=== PATIENT | male | born 1950 | race Caucasian/White ===

== ENCOUNTER 2020-12-22 11:46 | Inpatient (IN) | payer MEDICARE, MEDICAID ==
[~2020-12-22] VITALS: Ht 177.8 cm; Wt 74.4 kg
[2020-12-22] MEDS ORDERED: SODIUM CHLORIDE 0.9% 250 ML IV ONE (12:30)
[2020-12-22 12:36] LABS: HEMATOCRIT. 35.7 % (42.0-52.0); MEAN CORPUSCULAR HEMOGLOBIN 36.3 pg (28.0-32.0); MEAN CORPUSCULAR VOLUME 108.3 fL (80.0-94.0); MEAN PLATELET VOLUME 7.1 fl (7.4-10.4); PLATELET 70 x1000/uL (130-400)
[2020-12-22] MEDS ORDERED: ACETAMINOPHEN 325MG TABLET PO STA (12:41)
[2020-12-22 12:42] LABS: CHLORIDE 96 mEq/L (98-107)
[2020-12-22 12:44] LABS: INR 1.7; PROTHROMBIN TIME 17.7 sec (9.6-11.0)
[2020-12-22] MEDS ORDERED: PIPERACILLIN/TAZ 3.375G PREMIX 50 ML IV ONE (12:45)
[2020-12-22] MEDS ORDERED: VANCOMYCIN 1 G PREMIX 200 ML IV ONE (12:45)
[2020-12-22 12:46] LABS: ETHANOL BLOOD < 10 mg/dL
[2020-12-22] MEDS ORDERED: ACETAMINOPHEN 650MG SUPP PR ONE (13:00)
[2020-12-22 13:17] LABS: PLATELET ESTIMATE DECREASED
[2020-12-22] MEDS ORDERED: LACTULOSE 20G/30ML UDC PO ONE (13:30)
[2020-12-22] MEDS ORDERED: IOHEXOL-350 100 ML BOTTLE ONE (14:16)
[2020-12-22] MEDS ORDERED: SODIUM CHLORIDE 0.9% 1,000 ML IV ONE (14:45)
[2020-12-22] MEDS: DEXT 5%/0.9% NACL 1,000 ML IV SCH (16:45)
[2020-12-22] MEDS ORDERED: DILTIAZEM HCL 125 MG in DEXT 5% WATER 100 ML IV PRN (16:45)
[2020-12-22] MEDS ORDERED: ACETAMINOPHEN 650MG SUPP PR PRN (16:45)
[2020-12-22] MEDS ORDERED: MORPHINE SULFATE 2 MG/ML CPJ (NOT FOR IM USE) IV PRN (16:45)
[2020-12-22] MEDS ORDERED: ONDANSETRON HCL 4MG/2ML INJ IV PRN (16:45)
[2020-12-22] MEDS ORDERED: LACTULOSE 20G/30ML UDC PO SCH (16:45)
[2020-12-22] MEDS ORDERED: LORAZEPAM 2MG/ML CPJ IV PRN (16:45)
[2020-12-22] MEDS ORDERED: IPRATROPIUM/ALBUTEROL 0.5-3(2.5)MG/3ML NEB NEB PRN (16:45)
[2020-12-22] MEDS ORDERED: ACETAMINOPHEN 650MG/20.3ML UDC GT PRN (16:45)
[2020-12-22] MEDS ORDERED: PHENYLEPHRINE 50 MG in DEXT 5% WATER 245 ML IV PRN (16:45)
[2020-12-22] MEDS ORDERED: DIPHENHYDRAMINE 50MG/ML VIAL IV PRN (16:45)
[2020-12-22] MEDS ORDERED: PANTOPRAZOLE SODIUM 40 MG/VIAL IV SCH (17:00)
[2020-12-22 17:11] LABS: BG BASE EXCESS -13.1 mmol/L (-2.0-2.0); BG CARBOXYHEMOGLOBIN 0.5 % (0.5-1.5); BG DEOXYHEMOGLOBIN 5.3 % (0.0-5.0); BG HCO3 ACT 10.3 mmol/L (22.0-26.0); BG METHEMOGLOBIN 0.3 % (0.0-1.5); BG OXYGEN SATURATION 94.7 % (92.0-98.5); BG OXYHEMOGLOBIN 93.9 % (94.0-97.0); BG PCO2 19.4 mmHg (35.0-45.0); BG PH 7.344 (7.350-7.450); BG PO2 78.5 mmHg (75.0-100.0); BG SAMPLE SITE LEFT BRACHIAL; BG TOTAL HEMOGLOBIN 12.7 g/dL (12.0-18.0); BG VENT MODE ROOM AIR
[2020-12-22] MEDS ORDERED: PHYTONADIONE 10MG/ML AMP SUBCUT NR (17:30)
[2020-12-22] MEDS ORDERED: SODIUM BICARBONATE 8.4% 1 MEQ/ML 50ML SYR IV NR (17:30)
[2020-12-22] MEDS: LACTULOSE 20G/30ML UDC PO SCH (17:45)
[2020-12-22] MEDS: PANTOPRAZOLE SODIUM 40 MG/VIAL IV SCH (17:45)
[2020-12-22] MEDS: DEXTROSE 50% WATER 50ML SYRINGE IV PRN (17:52)
[2020-12-22] MEDS ORDERED: MEROPENEM 1,000 MG in SODIUM CHLORIDE 0.9% 100 ML IV SCH (18:00)
[2020-12-22] MEDS: MEROPENEM 1,000 MG in SODIUM CHLORIDE 0.9% 100 ML IV SCH (18:45)
[2020-12-22] MEDS: DILTIAZEM HCL 125 MG in DEXT 5% WATER 100 ML IV PRN (18:54)
[2020-12-23] VITALS (87 sets, daily range): BP systolic 68–137; BP diastolic 20–90
[2020-12-23] MEDS: NOREPINEPHRINE 8MG/250ML PMX 250 ML IV PRN ×2 (00:21→04:37)
[2020-12-23 00:32] LABS: HEMATOCRIT 32.2 % (42.0-52.0); HEMOGLOBIN 10.6 g/dL (14.0-18.0)
[2020-12-23] MEDS: LACTULOSE 20G/30ML UDC PO SCH ×4 (00:48→16:53)
[2020-12-23] MEDS ORDERED: VANCOMYCIN 1 G PREMIX 200 ML IV SCH ×2 (01:00→13:00)
[2020-12-23] MEDS: DILTIAZEM HCL 125 MG in DEXT 5% WATER 100 ML IV PRN (03:37)
[2020-12-23] MEDS: MEROPENEM 1,000 MG in SODIUM CHLORIDE 0.9% 100 ML IV SCH ×4 (04:03→22:40)
[2020-12-23] MEDS: BLOOD SUGAR DIAGNOSTIC STRIP TEST SCH ×7 (04:45→22:07)
[2020-12-23 05:54] LABS: HEMATOCRIT. 32.1 % (42.0-52.0); HEMOGLOBIN. 10.6 g/dL (14.0-18.0); MEAN CORPUSCULAR HEMOGLOBIN 35.4 pg (28.0-32.0); MEAN CORPUSCULAR VOLUME 107.3 fL (80.0-94.0); RED BLOOD CELL COUNT 2.99 mill/uL (4.7-6.1)
[2020-12-23 06:01] LABS: CHLORIDE 99 mEq/L (98-107)
[2020-12-23 06:07] LABS: TOTAL IRON BINDING CAPACITY 108 ug/dL (250-450)
[2020-12-23 06:09] LABS: CREATINE KINASE 652 IU/L (39-308)
[2020-12-23 06:37] LABS: HEPATITIS B SURFACE ANTIGEN NEGATIVE
[2020-12-23 06:43] LABS: VITAMIN B12 SERUM > 2000.0 pg/mL (211-911)
[2020-12-23 07:38] LABS: FERRITIN 1900 ng/mL (22-322)
[2020-12-23] MEDS: PHENYLEPHRINE 50 MG in DEXT 5% WATER 245 ML IV PRN ×3 (09:00→22:09)
[2020-12-23] MEDS ORDERED: PHYTONADIONE 10MG/ML AMP SUBCUT SCH (09:00)
[2020-12-23] MEDS ORDERED: FUROSEMIDE 40MG/4ML VIAL IVP SCH (09:00)
[2020-12-23] MEDS: PANTOPRAZOLE SODIUM 40 MG/VIAL IV SCH ×2 (10:32→17:22)
[2020-12-23] MEDS: DEXT 5%/0.9% NACL 1,000 ML IV SCH (10:35)
[2020-12-23 10:39] LABS: PLATELET 77 x1000/uL (130-400)
[2020-12-23 10:43] LABS: PLATELET ESTIMATE DECREASED
[2020-12-23 10:46] LABS: BG BASE EXCESS -18.8 mmol/L (-2.0-2.0); BG CARBOXYHEMOGLOBIN 0.4 % (0.5-1.5); BG DEOXYHEMOGLOBIN 2.3 % (0.0-5.0); BG FRACTION INSPIRED OXYGEN 32; BG HCO3 ACT 5.6 mmol/L (22.0-26.0); BG METHEMOGLOBIN 0.1 % (0.0-1.5); BG OXYGEN SATURATION 97.7 % (92.0-98.5); BG OXYHEMOGLOBIN 97.2 % (94.0-97.0); BG PCO2 12.7 mmHg (35.0-45.0); BG PH 7.262 (7.350-7.450); BG SAMPLE SITE LEFT RADIAL; BG TOTAL HEMOGLOBIN 11.9 g/dL (12.0-18.0); BG VENT MODE NASAL CANNULA
[2020-12-23] MEDS ORDERED: LACTULOSE 20G/30ML UDC PR NR (11:00)
[2020-12-23 11:54] LABS: HEMATOCRIT 33.6 % (42.0-52.0); HEMOGLOBIN 10.8 g/dL (14.0-18.0)
[2020-12-23 12:01] LABS: INR 2.4; PROTHROMBIN TIME 24.4 sec (9.6-11.0)
[2020-12-23] MEDS: VANCOMYCIN 750 MG PREMIX 150 ML IV SCH (12:01)
[2020-12-23 12:09] LABS: CLARITY URINE CLOUDY (CLEAR); COLOR URINE DARK YELLOW (YELLOW); KETONES URINE TRACE (NEGATIVE); LEUKOCYTE ESTERASE URINE TRACE (NEGATIVE); NITRITE URINE POSITIVE (NEGATIVE); OCCULT BLOOD URINE 1+ (NEGATIVE); PH URINE 5.5 (4.5-8.0); PROTEIN URINE 1+ (NEGATIVE)
[2020-12-23 12:42] LABS: OPIATES URINE SCREEN NEGATIVE (NEGATIVE)
[2020-12-23 12:43] LABS: *AMPHETAMINES SCREEN URINE NEGATIVE (NEGATIVE); *BARBITURATES SCREEN URINE NEGATIVE (NEGATIVE); *BENZODIAZEPINES SCREEN URINE NEGATIVE (NEGATIVE); *COCAINE SCREEN URINE NEGATIVE (NEGATIVE); CANNABINOID URINE SCREEN NEGATIVE (NEGATIVE); METHADONE URINE SCREEN NEGATIVE (NEGATIVE); PHENCYCLIDINE URINE SCREEN NEGATIVE (NEGATIVE)
[2020-12-23] MEDS: DEXTROSE 50% WATER 50ML SYRINGE IV PRN ×2 (13:08→18:05)
[2020-12-23] MEDS ORDERED: LACTULOSE 300 ML in WATER FOR IRRIGATION,STERILE 700 ML IR SCH (14:00)
[2020-12-23] MEDS: DEXTROSE 10% WATER 500 ML IV SCH (14:20)
[2020-12-23] MEDS ORDERED: SODIUM BICARBONATE 8.4% 1 MEQ/ML 50ML SYR IV NR (14:30)
[2020-12-23 15:35] LABS: PHOSPHORUS 5.5 mg/dL (2.5-4.9)
[2020-12-23] MEDS ORDERED: LACTULOSE 300 ML in WATER FOR IRRIGATION,STERILE 700 ML IR ONE (15:45)
[2020-12-23 15:50] LABS: FOLIC ACID (FOLATE) SERUM 5.2 ng/mL (>5.38)
[2020-12-23] MEDS ORDERED: MAGNESIUM 1 G PREMIX 100 ML IV NR (16:00)
[2020-12-23 17:40] LABS: BG BASE EXCESS -17.9 mmol/L (-2.0-2.0); BG CARBOXYHEMOGLOBIN 0.3 % (0.5-1.5); BG DEOXYHEMOGLOBIN 1.8 % (0.0-5.0); BG FRACTION INSPIRED OXYGEN 44; BG HCO3 ACT 6.9 mmol/L (22.0-26.0); BG METHEMOGLOBIN 0.2 % (0.0-1.5); BG OXYGEN SATURATION 98.2 % (92.0-98.5); BG OXYHEMOGLOBIN 97.7 % (94.0-97.0); BG PCO2 15.9 mmHg (35.0-45.0); BG PH 7.258 (7.350-7.450); BG PO2 129.3 mmHg (75.0-100.0); BG SAMPLE SITE RIGHT RADIAL; BG TOTAL HEMOGLOBIN 10.8 g/dL (12.0-18.0); BG VENT MODE NASAL CANNULA
[2020-12-23] MEDS: NOREPINEPHRINE 8 MG in DEXTROSE 5% WATER 250 ML IV PRN ×2 (18:33→22:08)
[2020-12-23 18:38] LABS: HEMATOCRIT 31.1 % (42.0-52.0); HEMOGLOBIN 10.1 g/dL (14.0-18.0)
[2020-12-23] MEDS ORDERED: PHYTONADIONE 10MG/ML AMP SUBCUT NR (20:00)
[2020-12-23] MEDS ORDERED: RIFAXIMIN 550 MG TABLET PO SCH (21:00)
[2020-12-24] VITALS (20 sets, daily range): BP systolic 0–107; BP diastolic 23–52
[2020-12-24] MEDS ORDERED: VASOPRESSIN 20 UNIT in SODIUM CHLORIDE 0.9% 99 ML IV PRN
[2020-12-24] MEDS: LACTULOSE 20G/30ML UDC PO SCH
[2020-12-24] MEDS: NOREPINEPHRINE 8 MG in DEXTROSE 5% WATER 250 ML IV PRN ×2 (00:24→02:00)
[2020-12-24] MEDS: BLOOD SUGAR DIAGNOSTIC STRIP TEST SCH ×2 (00:24→02:17)
[2020-12-24] MEDS: DEXTROSE 10% WATER 500 ML IV SCH (00:55)
[2020-12-24] MEDS: VANCOMYCIN 750 MG PREMIX 150 ML IV SCH (00:55)
[2020-12-24] MEDS ORDERED: PHYTONADIONE 10MG/ML AMP SUBCUT NR (02:00)
[2020-12-24] MEDS: PHENYLEPHRINE 50 MG in DEXT 5% WATER 245 ML IV PRN (02:00)
[2020-12-24 05:27] LABS: HEMATOCRIT. 26.2 % (42.0-52.0); HEMOGLOBIN. 8.2 g/dL (14.0-18.0); MEAN CORPUSCULAR HEMOGLOBIN 36.2 pg (28.0-32.0); MEAN CORPUSCULAR VOLUME 116.1 fL (80.0-94.0); MEAN PLATELET VOLUME 8.8 fl (7.4-10.4); RED BLOOD CELL COUNT 2.26 mill/uL (4.7-6.1); RED CELL DISTRIBUTION WIDTH 18.4 % (11.6-14.6)
[2020-12-24 05:32] LABS: INR 2.7; PROTHROMBIN TIME 27.2 sec (9.6-11.0)
[2020-12-24 08:57] LABS: PLATELET ESTIMATE DECREASED
[2020-12-24 08:59] LABS: PLATELET 51 x1000/uL (130-400)
== END 2020-12-24 06:30 | DRG 871 ==
LOC: ER 11:46 → EDBEDREQ 12:04 → MICUSO 13:51 → EDBEDREQ 13:57 → SUPCPDRO 16:12 → CANRESERV 16:34 → ENRESERV 16:34 → EDBEDREQSVC 17:52 → CVICU 12-23 06:12
PROVIDERS: ADMIT Internal Medicine; ATTEND Internal Medicine
PROC: 02HV33Z Insertion of Infusion Device into Superior Vena Cava, Percutaneous Approach (ICD-10-PCS; principal; 2020-12-23)
PROC: B518ZZA Fluoroscopy of Superior Vena Cava, Guidance (ICD-10-PCS; 2020-12-23)
PROC: B548ZZA Ultrasonography of Superior Vena Cava, Guidance (ICD-10-PCS; 2020-12-23)
PROC: 30233K1 Transfusion of Nonautologous Frozen Plasma into Peripheral Vein, Percutaneous Approach (ICD-10-PCS; 2020-12-23)
DX: A41.50 Gram-negative sepsis, unspecified (principal); J69.0 Pneumonitis due to inhalation of food and vomit; G93.41 Metabolic encephalopathy; K65.2 Spontaneous bacterial peritonitis; E87.2 Acidosis; D61.818 Other pancytopenia; K76.6 Portal hypertension; D68.4 Acquired coagulation factor deficiency; I48.20 Chronic atrial fibrillation, unspecified; J90 Pleural effusion, not elsewhere classified; K57.92 Diverticulitis of intestine, part unspecified, without perforation or abscess without bleeding; I85.00 Esophageal varices without bleeding; R09.02 Hypoxemia; K72.90 Hepatic failure, unspecified without coma; Z66 Do not resuscitate; K74.60 Unspecified cirrhosis of liver; F10.10 Alcohol abuse, uncomplicated; Y90.9 Presence of alcohol in blood, level not specified; E87.70 Fluid overload, unspecified; R06.03 Acute respiratory distress; K52.9 Noninfective gastroenteritis and colitis, unspecified; K20.90 Esophagitis, unspecified without bleeding; Z79.01 Long term (current) use of anticoagulants; Z79.899 Other long term (current) drug therapy
CPT/HCPCS: 36415; 36600; 71045; 71275; 74174; 76937; 80048; 80053; 80305; 80320; 81003; 82140; 82248; 82375; 82550; 82553; 82607; 82728; 82746; 82805; 82962; 83540; 83550; 83605; 83735; 83880; 84100; 84145; 84443; 84484; 85014; 85018; 85025; 85044; 86705; 86709; 86803; 86850; 86900; 86927; 87077; 87186; 87340; 87426; 93005; 93306; 93970; 99291; C1725; C9113; J1940; J2185; J2370; J2543; J3370; J3430; J3475; J3490; J7030; J7042; J7050; J7060; P9017; Q9967; G0480